=== PATIENT | male | born 1995 | race Caucasian/White ===

== ENCOUNTER 2020-11-16 08:41 | Outpatient (REF) | payer OTHER, SELFPAY | END 2020-11-16 08:42 | disposition home or self-care (01) | LOC: HO.LAB 08:41 | PROVIDERS: Visit Provider Internal Medicine | DX: Z20.822 Contact with and (suspected) exposure to COVID-19 (principal) | CPT/HCPCS: 36415; C9803; U0003; U0005 ==

== ENCOUNTER 2021-04-04 21:23 | Emergency (ER) | payer OTHER, SELFPAY ==
--- NOTE | ~2021-04-04 | XR_ITS ---
EXAMINATION: XR CHEST CLINICAL INFORMATION: Right rib pain COMPARISON: None TECHNIQUE: 2 views of the chest were obtained. FINDINGS: No significant abnormality is noted involving the heart, lungs, mediastinum, bony thorax or soft tissues. No rib abnormality seen. XR/XR chest 2V IMPRESSION: Unremarkable examination.
[2021-04-04 21:25] VITALS: BP 126/79; PULSE 75; RESP 16; TEMP 37.1; O2SAT 98; BMI 20.5
--- NOTE | 2021-04-04 23:29 | ED_ITS ---
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 noticed pain in the low right lower rib area also on the left side no increase in pain on deep inhalation no swelling or ecchymosis pain increases on palpation and arm movements Related Data Allergies Allergy/AdvReac Type Severity Reaction Status Date / Time No Known Allergies Allergy Unverified 04/04/21 21:30 Review of Systems Review of Systems: Yes all other systems are reviewed and are negative [facility] Past Medical History Medical History No known health problems Social History Social History Advance Directives: No Advance Directives Information Provided: No Physical Exam Vital Signs: Vital Signs: Last Vital Signs Temp 98.7 F 04/04/21 21:25 Pulse 75 04/04/21 21:25 Resp 16 04/04/21 21:25 BP 126/79 04/04/21 21:25 Pulse Ox 98 04/04/21 21:25 Body Mass Index 20.5 Const: General: healthy appearing, comfortable and no acute distress HENMT: Head: Yes normal to inspection Chest: Chest palpation & inspection: normal inspection of the chest Chest/axillae images: 1. Local tenderness right lower no deformity no crepitus 2. Mild local tenderness left lower rib no deformity or crepitus Resp: Effort & Inspection: normal respiratory effort Auscultation: clear to auscultation bilaterally Cardio: Rate: regular rate Rhythm: regular rhythm Heart sounds: S1 normal heart sound present and S2 normal heart sound present GI: Inspection: Yes normal to inspection Palpation (GI): Soft to palpation and nontender Auscultation: normal bowel sounds Extrem: General: Yes normal to inspection and Yes full ROM Medical Decision Making MDM Narrative Medical decision making narrative: Patient with local tenderness chest x-ray negative likely most skeletal pain discharge patient home on ibuprofen Discharge Plan Discharge Clinical Impression: Musculoskeletal chest pain Patient Disposition: Home, Self-Care Instructions: Musculoskeletal Pain (ED) Additional Instructions: Apply ice take ibuprofen 600 mg every 6 hours as needed for pain
== END 2021-04-05 01:21 | disposition home or self-care (01) ==
PROVIDERS: Emergency Provider Internal Medicine
DX: R07.89 Other chest pain (principal)
CPT/HCPCS: 71046; 99283

== ENCOUNTER 2021-10-26 15:14 | Emergency (ER) | payer SELFPAY ==
[2021-10-26 15:40] VITALS: BP 142/78; PULSE 106; RESP 18; TEMP 37.7; O2SAT 97; BMI 22.3
--- NOTE | 2021-10-26 16:09 | ED.GENADULT ---
HPI - General Adult General Chief complaint: Upper Respiratory Symptoms Stated complaint: Fever past three days, throat is sore- red spots Time Seen by Provider: 10/26/21 16:09 Source: patient Limitations: no limitations History of Present Illness HPI narrative: Patient presents to the ER complaining of sore throat for the past 3 days. Patient also noted to have a fever over the past 2-3 days. Patient states positive sick contacts. No known COVID-19 exposure. Patient is on vaccinated for COVID-19. Patient denies past medical history take any current prescribed medications. Patient does have a tobacco use history. Symptoms mild to moderate. Pain increases with swallowing. Patient denies nausea vomiting. Related Data Previous Rx's Medication Instructions Recorded benzonatate 100 mg capsule 100 mg PO TID PRN #14 cap 10/26/21 ibuprofen 600 mg tablet 600 mg PO TID PRN #30 tab 10/26/21 Allergies Allergy/AdvReac Type Severity Reaction Status Date / Time No Known Allergies Allergy Verified 10/26/21 15:40 Review of Systems Constitutional: Constitutional: Denies body ache(s), Denies chills, Reports fever(s) and Denies headache(s) ENT: Denies headache(s), Reports nasal congestion and Reports sore throat Cardiovascular: Cardiovascular: Denies chest pain and Denies dyspnea Respiratory: Respiratory: Denies cough and Denies dyspnea Gastrointestinal: Gastrointestinal: Denies nausea and Denies vomiting Musculoskeletal: Musculoskeletal: Denies back pain Neurologic: Denies headache(s) [facility] Past Medical History Attestation statement: The following information was validated with the patient. Medical History No known health problems Social History Social History Advance Directives: No Advance Directives Information Provided: No Physical Exam ED Vital Signs: Vital Signs - 24 hr 10/26/21 15:40 Temperature 99.9 F Pulse Rate 106 H Respiratory Rate 18 Blood Pressure 142/78 H Pulse Oximetry 97 BMI result Body Mass Index 22.3 vital signs have been reviewed as normal and appeared to be correct. Blood pressure normal. Heart rate normal. Respiration rate normal. Temperature normal. Oxygen saturation normal. Appearance: Alert. Oriented X3. No acute distress. Head: Normal external exam. Normocephalic. Atraumatic. Eyes: PERRLA. EOMI. Conjunctiva and sclera normal. Eyelids normal. ENT: Positive pharyngeal erythema no exudate no evidence of peritonsillar abscess uvula is midline Neck: Soft full range of motion CVS: Heart regular rate and rhythm no murmurs and rubs Respiratory: Breath sounds are clear to auscultation bilaterally. No accessory muscle use noted. Back: Full range of motion noted. Skin: Skin warm and dry. No rashes ecchymosis noted Extremities: Moving all extremities purposely patient is ambulatory Neuro: Oriented X 3. No motor deficit. No sensory deficit. Reflexes normal. Course Course Course Narrative: Acute pharyngitis Peritonsillar abscess COVID-19 Viral URI COVID-19 swab obtained rapid throat culture obtained results pending 16:40 patient's test for COVID is negative also for rapid strep Symptoms consistent with viral URI Medical Decision Making Lab Data Labs: Lab Results 10/26/21 10/26/21 Range/Units 15:46 15:46 COVID-19 (NAKITA) Negative (Negative) COVID-19 Clin Com See Note S. pyogenes GrpA JENNIFER Negative (Negative) Discharge Plan Discharge Clinical Impression: Upper respiratory infection Patient Disposition: Home, Self-Care Instructions: Upper Respiratory Infection (ED) Additional Instructions: COVID-19 test is negative. Rapid strep test is negative If culture becomes positive they will call you with results Increase fluids rest medications as directed Prescriptions: New benzonatate 100 mg capsule 100 mg PO TID PRN (Reason: cough) Qty: 14 0RF ibuprofen 600 mg tablet 600 mg PO TID PRN (Reason: fever) Qty: 30 0RF
[2021-10-26 16:29] LABS: Strep A Nucleic Acid Negative (Negative)
[2021-10-26 16:38] LABS: COVID-19 Test Negative (Negative); IDNOW Serial# 08D9AD1C
== END 2021-10-26 16:51 | disposition home or self-care (01) ==
PROVIDERS: Emergency Provider Emergency Medicine
DX: J06.9 Acute upper respiratory infection, unspecified (principal); Z20.822 Contact with and (suspected) exposure to COVID-19; R50.9 Fever, unspecified; J02.9 Acute pharyngitis, unspecified
CPT/HCPCS: 36415; 87635; 87651; 99282; 99283

== ENCOUNTER 2022-03-11 09:54 | Emergency (ER) | payer OTHER, SELFPAY ==
--- NOTE | ~2022-03-11 | XR_ITS ---
EXAMINATION: XR RIBS, LEFT CLINICAL INFORMATION: Rib pain COMPARISON: None TECHNIQUE: 4 views submitted FINDINGS: There is no evidence for pneumothorax or effusion. There is no fracture seen. XR/XR ribs LT min 3V w CXR1V IMPRESSION: No displaced fracture is seen. No pneumothorax or effusion
[2022-03-11 10:21] VITALS: BP 121/77; PULSE 63; RESP 18; TEMP 36.9; O2SAT 99; BMI 22.6
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
[2022-03-11] MEDS: Lidocaine 4 % Patch ADH..PATCH 1 PATCH TRANSDERMA (12:27)
[2022-03-11] MEDS: Ketorolac Tromethamine 30 MG/ML VIAL IM (12:28)
== END 2022-03-11 12:59 | disposition home or self-care (01) ==
PROVIDERS: Emergency Provider Emergency Medicine
DX: R07.81 Pleurodynia (principal); Z79.899 Other long term (current) drug therapy
CPT/HCPCS: 71101; 96372; 99283; 99284; J1885

== ENCOUNTER 2023-03-16 18:30 | Emergency (ER) | payer OTHER, SELFPAY ==
--- NOTE | ~2023-03-16 | XR_ITS ---
EXAMINATION: XR CHEST CLINICAL INFORMATION: Chest pain. COMPARISON: Chest radiograph 03/11/2022. TECHNIQUE: 2 views of the chest were obtained. FINDINGS: No significant abnormality is noted involving the heart, lungs, mediastinum, bony thorax or soft tissues. XR/XR chest 2V IMPRESSION: Unremarkable examination.
--- NOTE | 2023-03-16 18:32 | ECG_ITS ---
Test Reason : CHEST PAIN Blood Pressure : / mmHG Vent. Rate : 101 BPM Atrial Rate : 101 BPM P-R Int : 136 ms QRS Dur : 080 ms QT Int : 328 ms P-R-T Axes : 086 084 051 degrees QTc Int : 425 ms Sinus tachycardia Possible Left atrial enlargement Abnormal ECG When compared with ECG of 26-SEP-2010 22:03, No significant changes seen Referred By: Generic ED Physician Electronically Signed By:Douglas Strauss
--- NOTE | 2023-03-16 19:03 | ED.CHESTPAIN ---
HPI - Chest Pain General Chief Complaint: Chest Pain Stated Complaint: chest pain Time Seen by Provider: 03/16/23 19:48 Source: patient Mode of arrival: ambulatory Limitations: no limitations History of Present Illness HPI narrative: Patient comes to the emergency room complaining of chest pain for 4 days. Patient states that on the left side, lasting a few seconds, very sharp, self resolves. At this time, patient states that he is asymptomatic. Related Data Previous Rx's Medication Instructions Recorded benzonatate 100 mg capsule 100 mg PO TID PRN cough #14 caps 10/26/21 ibuprofen 600 mg tablet 600 mg PO TID PRN fever #30 tabs 10/26/21 acetaminophen 500 mg tablet 500 mg PO Q6H PRN fever or pain 03/11/22 (Tylenol Extra Strength) #14 tabs cyclobenzaprine 5 mg tablet 5 mg PO Q8H PRN pain (scale score 03/11/22 7-10) 5 days #14 tabs lidocaine 5 % topical patch 1 patch topical DAILY PRN pain #30 03/11/22 (Lidoderm) ea naproxen 500 mg tablet 500 mg PO BID PRN pain 10 days #20 03/11/22 tabs Allergies Allergy/AdvReac Type Severity Reaction Status Date / Time No Known Allergies Allergy Verified 10/26/21 15:40 Review of Systems Review of Systems: Constitutional : No Weight loss, No Fever, No Chills, No Night Sweats, No Fatigue, No Malaise ENT/Mouth : No Hearing loss, No Ear Pain, No Nasal Congestion, No Sinus Pain, No Hoarseness, No sore throat, No Rhinorrhea, No Swallowing Difficulty Eyes: No Eye Pain, No Swelling, No Redness, No Foreign Body, No Discharge, No Vision Changes Cardiovascular : Complaining of sharp intermittent Chest Pain, No SOB, No Dyspnea on Exertion, No Orthopnea, No Edema, No Palpitations Respiratory : No Cough, No Sputum, No Wheezing, No Smoke Exposure, No Dyspnea Gastrointestinal : No Nausea, No Vomiting, No Diarrhea, No Constipation, No abdominal Pain, No Hematochezia, No Melena Genitourinary : no irregular bleeding, No Dysuria, No Urinary Frequency, No Hematuria, No Urinary Incontinence, No Urgency, No Flank Pain, No Urinary Flow Changes, No Hesitancy Musculoskeletal : No joint pain, No Myalgias, No Joint Swelling Skin : No Skin Lesions, No rash Neuro : No Weakness, No Numbness, No Paresthesias, No Loss of Consciousness, No Dizziness, No Headache Psych : No Anxiety/Panic, No Depression, No SI/HI/AH/VH, No Social Issues, Heme/Lymph: No Bruising, No Bleeding,No Lymphadenopathy Endocrine : No Polyuria, No Polydipsia, No Temperature Intolerance PMF Past Medical History Medical History No known health problems Social History Social History Alcohol intake: current Alcohol intake frequency: a few times a week Alcohol type: beer Smoked in Last 30 Days: Yes Use of substances other than those prescribed or required for medical reasons: No Advance Directives: No Advance Directives Information Provided: No Physical Exam Vital Signs: Vital Signs: Last Vital Signs Temp 98.1 F 03/16/23 19:47 Pulse 72 03/16/23 19:47 Resp 13 03/16/23 19:47 BP 133/80 03/16/23 19:47 Pulse Ox 100 03/16/23 19:47 O2 Del Method Room Air 03/16/23 19:47 BMI result Body Mass Index 22.7 Const: Other: Appearance: Alert. Oriented X3. No acute distress. Eyes: Pupils equal, round and reactive to light. ENT: Pharynx normal. Neck: Normal inspection. Neck supple. No lymph nodes noted. No crepitus CVS: Normal heart rate and rhythm. Pulses normal. Normal S1 and S2, non reproducible chest pain on palpation Respiratory: No respiratory distress. Breath sounds normal. No Wheezing. No rales Abdomen: Soft and nontender. No rigidity. No distention. Skin: Skin warm and dry. Normal skin color. Normal skin turgor. Extremities: No lower extremity edema. No Lacerations. No Rash Neuro: Oriented X 3. No motor deficit. No sensory deficit. Moving all extremities. No slurred speech. CN 2 through 12 grossly intact Psych: calm, cooperative, normal affect Course Course Course Narrative: This is an RME: Additional HPI, ROS, PE not included below will be deferred to primary provider. Patient is a 27-year-old male presents emergency department for evaluation of left anterior chest pain onset 4 days ago without precipitating injury or upper respiratory symptoms. Pain is exacerbated with deep inspiration and movement. Does report a remote history of anxiety. Denies fevers, chills, shortness of breath, nausea, vomiting, lower extremity redness swelling, personal history DVT/PE Plan: Labs, EKG, CXR Medical Decision Making Medical Decision Making [facility] Narrative: -initially, patient came in complaining of chest pain for 3 days, admission was initially considered. -my interpretation EKG: Sinus tachycardia, heart rate 101, no ST segment depression or elevation, no T-wave inversion, QTC 425 -my interpretation of labs: Troponin is negative, D-dimer negative -wells criteria score for pulmonary embolism is 0 -patient's source of pain likely musculoskeletal, cardiac etiology is unlikely Differential Diagnosis Differential Diagnoses: The differential diagnosis associated with the presentation includes (ACS, PE, costochondritis, pleurisy) Admission/Observation Consideration of admission/observation: Escalation of care including admission/observation considered Lab Data [facility] Lab Attestation statement: I reviewed the patient's lab results. 03/16/23 19:57 03/16/23 19:58 Labs: Lab Results 03/16/23 03/16/23 03/16/23 Range/Units 19:57 19:58 19:58 WBC 9.4 (4.8-10.8) X10*3/uL RBC 5.68 (4.60-5.80) X10*6/uL Hgb 17.0 (14.0-18.0) g/dl Hct 48.7 (42.0-52.0) % MCV 85.7 (80.0-98.0) fL MCH 29.9 (27.0-33.0) pg MCHC 34.9 (31.0-36.0) g/dl RDW 11.9 (11.0-16.0) % Plt Count 204 (160-400) X10*3/uL MPV 9.6 (9.4-12.4) fL Immature Gran % (Auto) 0.2 (0.0-0.4) % Neut % (Auto) 73.2 H (45-73) % Lymph % (Auto) 18.7 L (20-40) % Atkinson % (Auto) 5.7 (2-11) % Eos % (Auto) 1.9 (0-4) % Baso % (Auto) 0.3 (0-2) % Lymph # (Auto) 1.8 (1.2-4.9) X10*3/uL Atkinson # (Auto) 0.5 (0.1-1.2) X10*3/uL Eos # (Auto) 0.2 (0.0-0.4) X10*3/uL Baso # (Auto) 0.0 (0.0-0.2) X10*3/uL Abs Immat Gran (auto) 0.02 (0.00-0.03) X10*3/uL Absolute Neuts (auto) 6.9 (2.0-8.3) x10*3/uL Absolute Nucleated RBC 0.000 (0.0-0.012) X10*3/uL Nucleated RBC % (auto) 0.0 (0.0-0.2) /100WBC D-Dimer High Sensitivty NG/ML Sodium 139 (135-145) mmol/L Potassium 3.8 (3.3-5.1) mmol/L Chloride 104 (96-108) mmol/L Carbon Dioxide 26 (22-29) mmol/L Anion Gap 13 (12-20) BUN 10 (9-16) mg/dL Creatinine 0.91 (0.5-1.4) mg/dL Estim Creat Clear Calc 116.7 Estimated GFR > 60 Random Glucose 95 (60-115) mg/dL Calcium 10.3 H (8.4-10.2) mg/dL Total Bilirubin 0.6 (0.0-1.0) mg/dL AST 15 (5-37) U/L ALT 14 (0-40) U/L Alkaline Phosphatase 91 (39-117) U/L Troponin I High Sens < 2.7 (<3.5-35.0) ng/L Total Protein 7.7 (6.5-8.0) g/dL Albumin 4.6 (3.5-5.0) g/dL 03/16/23 Range/Units 19:58 WBC (4.8-10.8) X10*3/uL RBC (4.60-5.80) X10*6/uL Hgb (14.0-18.0) g/dl Hct (42.0-52.0) % MCV (80.0-98.0) fL MCH (27.0-33.0) pg MCHC (31.0-36.0) g/dl RDW (11.0-16.0) % Plt Count (160-400) X10*3/uL MPV (9.4-12.4) fL Immature Gran % (Auto) (0.0-0.4) % Neut % (Auto) (45-73) % Lymph % (Auto) (20-40) % Atkinson % (Auto) (2-11) % Eos % (Auto) (0-4) % Baso % (Auto) (0-2) % Lymph # (Auto) (1.2-4.9) X10*3/uL Atkinson # (Auto) (0.1-1.2) X10*3/uL Eos # (Auto) (0.0-0.4) X10*3/uL Baso # (Auto) (0.0-0.2) X10*3/uL Abs Immat Gran (auto) (0.00-0.03) X10*3/uL Absolute Neuts (auto) (2.0-8.3) x10*3/uL Absolute Nucleated RBC (0.0-0.012) X10*3/uL Nucleated RBC % (auto) (0.0-0.2) /100WBC D-Dimer High Sensitivty < 150 NG/ML Sodium (135-145) mmol/L Potassium (3.3-5.1) mmol/L Chloride (96-108) mmol/L Carbon Dioxide (22-29) mmol/L Anion Gap (12-20) BUN (9-16) mg/dL Creatinine (0.5-1.4) mg/dL Estim Creat Clear Calc Estimated GFR Random Glucose (60-115) mg/dL Calcium (8.4-10.2) mg/dL Total Bilirubin (0.0-1.0) mg/dL AST (5-37) U/L ALT (0-40) U/L Alkaline Phosphatase (39-117) U/L Troponin I High Sens (<3.5-35.0) ng/L Total Protein (6.5-8.0) g/dL Albumin (3.5-5.0) g/dL Independent Interpretation I performed an independent interpretation of an: EKG Radiology Impression Discussion of test interpretation with radiology: I have reviewed the radiologist's reading. Radiologist Impression: FINDINGS: No significant abnormality is noted involving the heart, lungs, mediastinum, bony thorax or soft tissues. XR/XR chest 2V IMPRESSION: Unremarkable examination. Discharge Plan Discharge Clinical Impression: Atypical chest pain Patient Disposition: Home, Self-Care Instructions: Chest Pain (ED) Additional Instructions: Please follow-up with your primary care physician tomorrow. If you have any worsening or new symptoms, please return to the emergency room or call 911 Prescriptions: No Action acetaminophen [Tylenol Extra Strength] 500 mg tablet 500 mg PO Q6H PRN (Reason: fever or pain) Qty: 14 0RF lidocaine [Lidoderm] 5 % adhesive patch,medicated 1 patch topical DAILY MDD remove after 12 hours PRN (Reason: pain) Qty: 30 0RF Rx Instructions: leave on most painful area for up to 12 hrs naproxen 500 mg tablet 500 mg PO BID PRN (Reason: pain) 10 Days Qty: 20 0RF cyclobenzaprine 5 mg tablet 5 mg PO Q8H PRN (Reason: pain (scale score 7-10)) 5 Days Qty: 14 0RF benzonatate 100 mg capsule 100 mg PO TID PRN (Reason: cough) Qty: 14 0RF ibuprofen 600 mg tablet 600 mg PO TID PRN (Reason: fever) Qty: 30 0RF
[2023-03-16 19:06] VITALS: BP 139/85; PULSE 78; RESP 20; TEMP 37; O2SAT 100; BMI 22.7
[2023-03-16 19:47] VITALS: BP 133/80; PULSE 72; RESP 13; TEMP 36.7; O2SAT 100
--- NOTE | 2023-03-16 19:50 | PC.NURSE ---
Pt aox4 resting at the bedside. No apparent distress noted. Breaths are even regular and unlabored. NSR on monitor with HR 72. VSS Reports intermittent chest pain, 03/04, that [place]. Chest pain on the left side of the chest. No radiation. Pending lab results. MD at bedside.
[2023-03-16 20:01] LABS: MANUAL DIFF FLAG NO
[2023-03-16 20:02] LABS: Basophils Percent Auto 0.3 % (0-2); Eosinophils Absolute Auto 0.2 X10*3/uL (0.0-0.4); Eosinophils Percent Auto 1.9 % (0-4); Hematocrit 48.7 % (42.0-52.0); Imm Gran Abs Auto 0.02 X10*3/uL (0.00-0.03); Imm Gran Pct Auto 0.2 % (0.0-0.4); Lymphocytes Absolute Auto 1.8 X10*3/uL (1.2-4.9); Lymphocytes Percent Auto 18.7 % (20-40); Mean Corpuscular HGB Conc 34.9 g/dl (31.0-36.0); Mean Corpuscular Hemoglobin 29.9 pg (27.0-33.0); Mean Corpuscular Volume 85.7 fL (80.0-98.0); Mean Platelet Volume 9.6 fL (9.4-12.4); Monocytes Absolute Auto 0.5 X10*3/uL (0.1-1.2); Monocytes Percent Auto 5.7 % (2-11); Neutrophils Absolute Auto 6.9 x10*3/uL (2.0-8.3); Neutrophils Percent Auto 73.2 % (45-73); Platelet Count 204 X10*3/uL (160-400); Red Blood Count 5.68 X10*6/uL (4.60-5.80); Red Cell Distribution Width 11.9 % (11.0-16.0); White Blood Count 9.4 X10*3/uL (4.8-10.8)
[2023-03-16 20:17] LABS: D Dimer High Sensitivity < 150 NG/ML
[2023-03-16 20:26] LABS: Alanine Aminotransferase 14 U/L (0-40); Albumin Level 4.6 g/dL (3.5-5.0); Alkaline Phosphatase 91 U/L (39-117); Anion Gap 13 (12-20); Aspartate Amino Transferase 15 U/L (5-37); Bilirubin Total 0.6 mg/dL (0.0-1.0); Blood Urea Nitrogen 10 mg/dL (9-16); Calcium 10.3 mg/dL (8.4-10.2); Carbon Dioxide 26 mmol/L (22-29); Chloride 104 mmol/L (96-108); Creatinine Clr Calc Pharmacy 116.7; Estimated Glomerular Filt Rate > 60; Glucose Random 95 mg/dL (60-115); Potassium 3.8 mmol/L (3.3-5.1); Sodium 139 mmol/L (135-145); Total Protein 7.7 g/dL (6.5-8.0)
[2023-03-16 20:37] LABS: Troponin-I High Sensitivity < 2.7 ng/L (<3.5-35.0)
== END 2023-03-16 21:34 | disposition home or self-care (01) ==
PROVIDERS: Nurse Practitioner Family; Emergency Provider Emergency Medicine
DX: R07.89 Other chest pain (principal); R07.1 Chest pain on breathing
CPT/HCPCS: 36415; 71046; 80053; 84484; 85025; 85379; 93005; 99284; 99285

== ENCOUNTER → 2023-03-16 18:32 | Outpatient (BNV) | payer OTHER, SELFPAY | PROVIDERS: Emergency Provider Emergency Medicine; Visit Provider Internal Medicine Cardiovascular Disease | DX: R07.9 Chest pain, unspecified (principal) | CPT/HCPCS: 93010 ==

== ENCOUNTER 2023-05-21 14:07 | Emergency (ER) | payer OTHER, SELFPAY ==
[2023-05-21 14:14] VITALS: BP 152/77; PULSE 100; RESP 18; TEMP 36.7; O2SAT 98; BMI 22.8
--- NOTE | 2023-05-21 14:15 | ECG_ITS ---
Test Reason : CHEST PAIN Blood Pressure : / mmHG Vent. Rate : 070 BPM Atrial Rate : 070 BPM P-R Int : 144 ms QRS Dur : 080 ms QT Int : 360 ms P-R-T Axes : 082 081 072 degrees QTc Int : 388 ms Normal sinus rhythm Possible Left atrial enlargement Borderline ECG When compared with ECG of 16-MAR-2023 18:45, Heart rate has decreased Referred By: Robert Gilbert Electronically Signed By:GERALD MELO
--- NOTE | 2023-05-21 14:17 | ED.GENADULT ---
HPI - General Adult General Chief complaint: Abdominal Pain Stated complaint: Chest pain Time Seen by Provider: 05/21/23 18:23 Source: patient Mode of arrival: ambulatory Limitations: no limitations History of Present Illness HPI narrative: 27-year-old male came in for evaluation of epigastric/chest pain on and off for 2 months, patient was seen and evaluated in the emergency department for similar pain patient was instructed to follow up with GI and was given PPI therapy patient failed her with a PPI but now the pain is back pain is worse with food mostly burning sensation to the epigastric area with no radiation the pain is not associated with SOB or fever. Patient drinks alcohol occasionally, patient thought that the pain is worse with food in general. No nausea, no vomiting, no diarrhea, no blood in the vomitus or in the stool. Related Data Previous Rx's Medication Instructions Recorded benzonatate 100 mg capsule 100 mg PO TID PRN cough #14 caps 10/26/21 ibuprofen 600 mg tablet 600 mg PO TID PRN fever #30 tabs 10/26/21 acetaminophen 500 mg tablet 500 mg PO Q6H PRN fever or pain 03/11/22 (Tylenol Extra Strength) #14 tabs cyclobenzaprine 5 mg tablet 5 mg PO Q8H PRN pain (scale score 03/11/22 7-10) 5 days #14 tabs lidocaine 5 % topical patch 1 patch topical DAILY PRN pain #30 03/11/22 (Lidoderm) ea naproxen 500 mg tablet 500 mg PO BID PRN pain 10 days #20 03/11/22 tabs omeprazole 20 mg capsule,delayed 20 mg PO BID #30 caps 05/21/23 release Allergies Allergy/AdvReac Type Severity Reaction Status Date / Time No Known Allergies Allergy Verified 10/26/21 15:40 Review of Systems Review of Systems: All other systems are reviewed and are negative Constitutional: Reports as per HPI and Reports no additional constitutional complaints Eyes: Reports as per HPI and Reports no additional eye complaints Reports system reviewed and no additional complaints, except as documented Cardiovascular: Reports as per HPI and Reports no additional cardiovascular complaints Respiratory: Reports as per HPI and Reports no additional respiratory complaints Gastrointestinal: Reports as per HPI and Reports no additional gastrointestinal complaints Genitourinary: Reports no additional female genitourinary complaints Musculoskeletal: Reports no additional musculoskeletal complaints Skin/Breast: Reports system reviewed and no additional complaints, except as docu Psychiatric: Reports no additional psychiatric complaints Endocrine: Reports no additional endocrine complaints Hematologic/Lymphatic: Reports no additional hematologic/lymphatic complaints Allergic/Immunologic: Reports no additional allergic/immunologic complaints Reports system reviewed and no additional complaints, except as documented and Reports Abnormal speech present [facility] Past Medical History Medical History No known health problems Social History Social History Alcohol intake: current Alcohol intake frequency: a few times a week Alcohol type: beer Advance Directives: No Physical Exam ED Vital Signs: Vital Signs - 24 hr 05/21/23 14:14 Temperature 98.1 F Pulse Rate 100 Respiratory Rate 18 Blood Pressure 152/77 H Pulse Oximetry 98 Oxygen Delivery Method Room Air BMI result Body Mass Index 22.8 Vital signs have been reviewed and appear to be correct. Blood pressure elevated. Heart rate normal. Respiratory rate normal. Temperature normal. Oxygen saturation normal. Appearance: Alert. Oriented X3. No acute distress. Head: Normal external exam. Normocephalic. Atraumatic. No Grace signs noted. No raccoon eyes noted Eyes: PERRLA. EOMI. Conjunctiva and sclera normal. Eyelids normal. ENT: TM's Normal. Pharynx normal. Uvula midline. Moist mucous membranes. No trismus noted. No drooling noted. No muffled voice noted. Neck: Normal inspection. Neck supple. FROM. No adenopathy. Thyroid Normal. No meningeal signs. No neck mass noted. CVS: Normal heart rate and rhythm. Heart sound normal. No murmurs noted. Pulses normal throughout. Respiratory: No respiratory distress. Painless inspiration. Breath sounds normal. No wheezes/rales/rhonchi noted. Chest nontender. No accessory muscle usage noted or decreased air movement noted. Abdomen: Soft and nontender. Bowel sounds normal in all 4 quadrants. No distention noted. No organomegaly noted. No visible injury noted. Back: No CVA tenderness. Full range of motion noted. Skin: Skin warm and dry. Normal skin color. Normal skin turgor. No rashes/lesions/lacerations noted. Extremities: No lower extremity edema. Extremities exhibit normal range of motion. Extremities nontender. Neuro: Oriented X 3. Cranial nerve exam: II-XII are grossly intact No motor deficit. No sensory deficit. Reflexes normal. Course Course Course Narrative: This is an RME: Additional HPI, ROS, PE not included below will be deferred to primary provider. 27 y o male presenting for eval of CP and abdominal pain x1 month. Also endorsing exertional dyspnea, currently not sob. Denies N/V/D, dizziness, bowel changes. Plan -- labs, EKG Reevaluation(s) Reevaluation #1: Epigastric pain for 2 months likely gastritis will start the patient on Prilosec and follow-up with GI. Time: 18:43 Medical Decision Making Differential Diagnosis Differential Diagnoses: The differential diagnosis associated with the presentation includes (ACS, gastritis, duodenitis, severe electrolyte abnormality, severe anemia.) Admission/Observation Consideration of admission/observation: Escalation of care including admission/observation considered Lab Data MDM Lab Attestation statement: I reviewed the patient's lab results. 05/21/23 14:41 05/21/23 14:41 Labs: Lab Results 05/21/23 Range/Units 14:41 WBC 5.9 (4.8-10.8) X10*3/uL RBC 5.14 (4.60-5.80) X10*6/uL Hgb 15.4 (14.0-18.0) g/dl Hct 45.0 (42.0-52.0) % MCV 87.5 (80.0-98.0) fL MCH 30.0 (27.0-33.0) pg MCHC 34.2 (31.0-36.0) g/dl RDW 11.9 (11.0-16.0) % Plt Count 191 (160-400) X10*3/uL MPV 10.0 (9.4-12.4) fL Immature Gran % (Auto) 0.0 (0.0-0.4) % Neut % (Auto) 64.1 (45-73) % Lymph % (Auto) 24.0 (20-40) % [place] % (Auto) 7.3 (2-11) % Eos % (Auto) 4.3 H (0-4) % Baso % (Auto) 0.3 (0-2) % Lymph # (Auto) 1.4 (1.2-4.9) X10*3/uL [place] # (Auto) 0.4 (0.1-1.2) X10*3/uL Eos # (Auto) 0.3 (0.0-0.4) X10*3/uL Baso # (Auto) 0.0 (0.0-0.2) X10*3/uL Abs Immat Gran (auto) 0.00 (0.00-0.03) X10*3/uL Absolute Neuts (auto) 3.8 (2.0-8.3) x10*3/uL Absolute Nucleated RBC 0.000 (0.0-0.012) X10*3/uL Nucleated RBC % (auto) 0.0 (0.0-0.2) /100WBC Sodium 139 (135-145) mmol/L Potassium 3.7 (3.3-5.1) mmol/L Chloride 107 (96-108) mmol/L Carbon Dioxide 24 (22-29) mmol/L Anion Gap 12 (12-20) BUN 10 (9-16) mg/dL Creatinine 0.96 (0.5-1.4) mg/dL Estim Creat Clear Calc 111.2 Estimated GFR > 60 Random Glucose 89 (60-115) mg/dL Calcium 9.5 D (8.4-10.2) mg/dL Magnesium 2.0 (1.6-2.6) mg/dL Total Bilirubin 0.5 (0.0-1.0) mg/dL AST 17 (5-37) U/L ALT 17 (0-40) U/L Alkaline Phosphatase 80 (39-117) U/L Troponin I High Sens < 2.7 (<3.5-35.0) ng/L Total Protein 7.5 (6.5-8.0) g/dL Albumin 4.6 (3.5-5.0) g/dL Independent Interpretation I performed an independent interpretation of an: EKG (Prep normal sinus rhythm at 70 beats per minute, normal axis deviation, normal intervals, no ST-T changes) Discharge Plan Discharge Clinical Impression: Gastritis Patient Disposition: Home, Self-Care Instructions: Gastritis (ED) Prescriptions: New omeprazole 20 mg capsule,delayed release(DR/EC) 20 mg PO BID Qty: 30 0RF No Action acetaminophen [Tylenol Extra Strength] 500 mg tablet 500 mg PO Q6H PRN (Reason: fever or pain) Qty: 14 0RF lidocaine [Lidoderm] 5 % adhesive patch,medicated 1 patch topical DAILY MDD remove after 12 hours PRN (Reason: pain) Qty: 30 0RF Rx Instructions: leave on most painful area for up to 12 hrs naproxen 500 mg tablet 500 mg PO BID PRN (Reason: pain) 10 Days Qty: 20 0RF cyclobenzaprine 5 mg tablet 5 mg PO Q8H PRN (Reason: pain (scale score 7-10)) 5 Days Qty: 14 0RF benzonatate 100 mg capsule 100 mg PO TID PRN (Reason: cough) Qty: 14 0RF ibuprofen 600 mg tablet 600 mg PO TID PRN (Reason: fever) Qty: 30 0RF Referrals: Jennifer Montenegro MD [Physician] -
[2023-05-21 14:49] LABS: MANUAL DIFF FLAG NO
[2023-05-21 14:55] LABS: Basophils Percent Auto 0.3 % (0-2); Eosinophils Absolute Auto 0.3 X10*3/uL (0.0-0.4); Eosinophils Percent Auto 4.3 % (0-4); Hemoglobin 15.4 g/dl (14.0-18.0); Lymphocytes Absolute Auto 1.4 X10*3/uL (1.2-4.9); Mean Corpuscular HGB Conc 34.2 g/dl (31.0-36.0); Mean Corpuscular Volume 87.5 fL (80.0-98.0); Monocytes Absolute Auto 0.4 X10*3/uL (0.1-1.2); Monocytes Percent Auto 7.3 % (2-11); Neutrophils Absolute Auto 3.8 x10*3/uL (2.0-8.3); Neutrophils Percent Auto 64.1 % (45-73); Platelet Count 191 X10*3/uL (160-400); Red Blood Count 5.14 X10*6/uL (4.60-5.80); Red Cell Distribution Width 11.9 % (11.0-16.0); White Blood Count 5.9 X10*3/uL (4.8-10.8)
[2023-05-21 15:04] LABS: Alanine Aminotransferase 17 U/L (0-40); Albumin Level 4.6 g/dL (3.5-5.0); Alkaline Phosphatase 80 U/L (39-117); Anion Gap 12 (12-20); Aspartate Amino Transferase 17 U/L (5-37); Bilirubin Total 0.5 mg/dL (0.0-1.0); Blood Urea Nitrogen 10 mg/dL (9-16); Calcium 9.5 mg/dL (8.4-10.2); Carbon Dioxide 24 mmol/L (22-29); Chloride 107 mmol/L (96-108); Creatinine Clr Calc Pharmacy 111.2; Estimated Glomerular Filt Rate > 60; Glucose Random 89 mg/dL (60-115); Potassium 3.7 mmol/L (3.3-5.1); Sodium 139 mmol/L (135-145); Total Protein 7.5 g/dL (6.5-8.0)
[2023-05-21 15:23] LABS: Troponin-I High Sensitivity < 2.7 ng/L (<3.5-35.0)
[2023-05-21 19:01] VITALS: BP 120/74; PULSE 64; RESP 18; TEMP 36.9; O2SAT 98
== END 2023-05-21 19:06 | disposition home or self-care (01) ==
PROVIDERS: Physician Assistant; Emergency Provider Emergency Medicine
DX: K29.70 Gastritis, unspecified, without bleeding (principal); R07.89 Other chest pain; R10.2 Pelvic and perineal pain; R50.9 Fever, unspecified; Z79.899 Other long term (current) drug therapy
CPT/HCPCS: 36415; 80053; 83735; 84484; 85025; 93005; 99283; 99284

== ENCOUNTER 2023-06-07 14:49 | Outpatient (REF) | payer OTHER, SELFPAY ==
[2023-06-07 16:58] LABS: C Reactive Protein 0.95 mg/dL (< or = 0.50)
[2023-06-10 08:23] LABS: HBS Num1 1.98 mIU/mL (0-7.99); HBc Num1 0.11 S/CO (0.00-0.79); HBsAGNum1 0.35 S/CO (0.00-0.99); Hepatitis B Core Antibody Nonreactive (Nonreactive); Hepatitis B Surface Antigen Negative (Negative); ~HepC Num1 0.04 S/CO (0.00-0.79); ~Hepatitis B Surface Antibody NONREACTIVE (Nonreactive); ~Hepatitis C Antibody Nonreactive (Nonreactive)
[2023-06-10 15:08] LABS: Immunoglobulin A 162 mg/dL (47-310)
[2023-06-11 19:59] LABS: Transglutaminase IgA <1.0 U/mL
== END 2023-06-07 14:50 | disposition home or self-care (01) ==
LOC: HO.LAB 14:49
PROVIDERS: Visit Provider Internal Medicine
DX: R10.13 Epigastric pain (principal); K22.4 Dyskinesia of esophagus; Z11.59 Encounter for screening for other viral diseases; Z72.89 Other problems related to lifestyle
CPT/HCPCS: 36415; 82784; 86140; 86364; 86704; 86706; 86803; 87340; 99202

== ENCOUNTER 2023-06-07 14:49 | Outpatient (AMB) | payer OTHER, SELFPAY ==
--- NOTE | 2023-06-07 14:51 | A.OFFVIS_ITS ---
Intake Vital Signs 06/07/23 14:53 Height 5 ft 8 in Weight 147 lb 11.355 oz BMI 22.5 BP 132/77 Blood Pressure Location Lt brachial Position Sitting Pulse 66 Intake Visit Reasons: Gastritis, ER follow up Intake Note: José presents in the office as a gastritis ER follow up. CC: HE states that he has omeprazole but it does not work for him. He states that he has been like this for 3 months know. He states that he does not get constipation or diarrhea. He gets severe pains in his stomach - He gets epigastric pains that go to the LUQ. It is not a burning feeling - it feels like cramping feeling. He does not have any blood when he has a BM. Public Relations Account Supervisor Required: No Allergies No Known Allergies Allergy (Verified 06/07/23 14:55) HPI HPI Comments History of Present Illness Details 27y.o M who is here for epigastric pain ongoing x 1 months. Pt was seen in ER 2 weeks ago because his pain felt worse than usual and radiated to his upper chest as well so he was worried about a cardiac cause. However by the time he got to the ER it was only in the epigastrium which he decribes as waves of spasms/ squeezing and sharp which lasts for days. Triggered by food used to eat take out a lot yeimy burgers and pizza. Also associated with nausea and regurgitation. Sometimes has had night time sx too. No odynophagia, dysphagia or unintentional weight loss. Pt smokes 7-8cigs/day. Used to drink etOH on weekends but has discontinued that as it makes the pain worse. No NSAID use. [facility] Medical History No known health problems Social History (Updated 06/07/23 @ 14:55 by CORRINE Campoverde) Alcohol intake: current Alcohol intake frequency: a few times a week Alcohol type: beer Tobacco use type: Cigarette Cigarettes Per Day: 7 Review of Systems Const All systems reviewed & are unremarkable except as noted in HPI and below Physical Exam Vital Signs: Last Vital Signs Pulse 66 06/07/23 14:53 BP 132/77 06/07/23 14:53 BMI result Body Mass Index 22.5 Gen appear: NAD HEENT: nonicteric, no cervical lymphadenopathy Chest: CTA CVS: Regular S1/S2 Abd: soft, nontender, nondistended, bowel sounds + Ext: no peripheral edema Neuro: A/Ox3, noted to move all extremities spontaneously Psych: interacting appropriately Assessment & Plan Assessment & Plan (1) Epigastric pain: Code(s): R10.13 - Epigastric pain (2) Esophageal spasm: Code(s): K22.4 - Dyskinesia of esophagus Plan Ddx include esophagitis 2/2 GERD, PUD, EoE, esophageal dysmotility yeimy given spasm like sensation, atypical sx of celiac. Plan: - Labs as below - Barium swallow - EGD w/ bx to be booked - Start empiric trial of omeprazole 40mg PO daily - pt aware to HOLD this 2 weeks prior to EGD. Follow up after EGD Orders: Orders Immunoglobulin A 06/07/23 R10.13 - Epigastric pain C Reactive Protein 06/07/23 R10.13 - Epigastric pain Hepatitis B Core Antibody 06/07/23 R10.13 - Epigastric pain Hepatitis B Surface Antigen 06/07/23 R10.13 - Epigastric pain [place] barium swallow 06/07/23 K22.4 - Dyskinesia of esophagus US abdomen complete 06/07/23 R10.13 - Epigastric pain Transglutaminase IgA 06/07/23 R10.13 - Epigastric pain Hepatitis B Surface Antibody 06/07/23 R10.13 - Epigastric pain Hepatitis C Antibody 06/07/23 R10.13 - Epigastric pain Medications: New omeprazole 40 mg PO DAILY 90 caps 0RF 90 days Discontinued naproxen Discontinued Reason: Doctor's Order 500 mg PO BID 10 days PRN 20 tabs 0RF pain ibuprofen Discontinued Reason: Doctor's Order 600 mg PO TID PRN 30 tabs 0RF fever omeprazole Discontinued Reason: Doctor's Order 20 mg PO BID 30 caps 0RF Coding Level of Care Code New Pt Level 4 (15857) Diagnoses Epigastric pain R10.13 Esophageal spasm K22.4
[2023-06-07 14:53] VITALS: BP 132/77; PULSE 66; BMI 22.5
== END 2023-06-07 15:31 | disposition home or self-care (01) ==
PROVIDERS: Visit Provider Internal Medicine
DX: R10.13 Epigastric pain (principal); K22.4 Dyskinesia of esophagus
CPT/HCPCS: 99204

== ENCOUNTER 2023-08-22 15:00 | Emergency (ER) | payer OTHER, SELFPAY ==
--- NOTE | ~2023-08-22 | US_ITS ---
EXAMINATION: ULTRASOUND RIGHT LOWER QUADRANT CLINICAL INFORMATION: Right lower quadrant pain COMPARISON: None. TECHNIQUE: Grayscale ultrasound, color Doppler performed right lower quadrant. FINDINGS: Tubular structure measuring 0.6 cm right lower quadrant which appears to be a normal blind-ending appendix. No surrounding inflammation or fluid collection. No mass or lymphadenopathy. Fluid-filled bowel loops which do not have peristalsis during the imaging exam. US/US appendix IMPRESSION: 1. Normal appendix. 2. Fluid-filled bowel loops which do not have peristalsis during the imaging exam.
--- NOTE | ~2023-08-22 | XR_ITS ---
EXAMINATION: XR ABDOMEN COMPLETE CLINICAL INDICATION: Distended bowel loops on ultrasound. COMPARISON: None available. TECHNIQUE: 2 views of the abdomen. FINDINGS: There is scattered stool and gas seen in colon without distention. No organomegaly. No gross bony abnormality. XR/XR abdomen min 2V IMPRESSION: Mild constipation.
[2023-08-22 15:55] VITALS: BP 126/72; PULSE 88; RESP 20; TEMP 36.7; O2SAT 99; BMI 22.3
--- NOTE | 2023-08-22 15:56 | ED.GENADULT ---
HPI - General Adult General Chief complaint: Abdominal Pain Stated complaint: lower abd pain Time Seen by Provider: 08/22/23 21:19 Source: patient Mode of arrival: ambulatory Limitations: no limitations History of Present Illness HPI narrative: Patient comes to the emergency room complaining of right lower quadrant pain. Patient states it has been hurting for about 12 hours now. Patient denies nausea vomiting or diarrhea. Patient also complaining of suprapubic pain and dysuria intermittently. Denies flank pain, no chest pain. No fever or chills. Related Data Home Medications Medication Instructions Recorded Confirmed benzonatate 100 mg capsule 100 mg PO TID PRN cough 06/07/23 Previous Rx's Medication Instructions Recorded acetaminophen 500 mg tablet 500 mg PO Q6H PRN fever or pain 03/11/22 (Tylenol Extra Strength) #14 tabs cyclobenzaprine 5 mg tablet 5 mg PO Q8H PRN pain (scale score 03/11/22 7-10) 5 days #14 tabs lidocaine 5 % topical patch 1 patch topical DAILY PRN pain #30 03/11/22 (Lidoderm) ea omeprazole 40 mg capsule,delayed 40 mg PO DAILY 90 days #90 caps 06/07/23 release hyoscyamine sulfate 0.125 mg tablet 0.125 mg PO QID PRN dyspepsia #10 08/22/23 tabs Allergies Allergy/AdvReac Type Severity Reaction Status Date / Time No Known Allergies Allergy Verified 08/22/23 15:56 Review of Systems Review of Systems: Constitutional : No Weight loss, No Fever, No Chills, No Night Sweats, No Fatigue, No Malaise ENT/Mouth : No Hearing loss, No Ear Pain, No Nasal Congestion, No Sinus Pain, No Hoarseness, No sore throat, No Rhinorrhea, No Swallowing Difficulty Eyes: No Eye Pain, No Swelling, No Redness, No Foreign Body, No Discharge, No Vision Changes Cardiovascular : No Chest Pain, No SOB, No Dyspnea on Exertion, No Orthopnea, No Edema, No Palpitations Respiratory : No Cough, No Sputum, No Wheezing, No Smoke Exposure, No Dyspnea Gastrointestinal : No Nausea, No Vomiting, No Diarrhea, No Constipation, complaining of right lower quadrant pain, suprapubic pain and mild left lower quadrant pain Genitourinary : Complaining of mild intermittent Dysuria, No Urinary Frequency, No Hematuria, No Urinary Incontinence, No Urgency, No Flank Pain, No Urinary Flow Changes, No Hesitancy Musculoskeletal : No joint pain, No Myalgias, No Joint Swelling Skin : No Skin Lesions, No rash Neuro : No Weakness, No Numbness, No Paresthesias, No Loss of Consciousness, No Dizziness, No Headache Psych : No Anxiety/Panic, No Depression, No SI/HI/AH/VH, No Social Issues, Heme/Lymph: No Bruising, No Bleeding,No Lymphadenopathy Endocrine : No Polyuria, No Polydipsia, No Temperature Intolerance [facility] Past Medical History Medical History No known health problems Social History Social History (Updated 06/07/23 @ 14:55 by CORRINE Campoverde) Alcohol intake: current Alcohol intake frequency: a few times a week Alcohol type: beer Tobacco use type: Cigarette Cigarettes Per Day: 7 Smoked in Last 30 Days: Yes Use of substances other than those prescribed or required for medical reasons: No Advance Directives: No Advance Directives Information Provided: No Physical Exam ED Vital Signs: Vital Signs - 24 hr 08/22/23 15:55 08/22/23 21:26 Temperature 98.1 F 98.7 F Pulse Rate 88 73 Respiratory Rate 20 14 Blood Pressure 126/72 129/76 Pulse Oximetry 99 97 Oxygen Delivery Method Room Air Room Air BMI result Body Mass Index 22.3 Const Other: Appearance: Alert. Oriented X3. No acute distress. Eyes: Pupils equal, round and reactive to light. ENT: Pharynx normal. Neck: Normal inspection. Neck supple. No lymph nodes noted. No crepitus CVS: Normal heart rate and rhythm. Pulses normal. Normal S1 and S2 Respiratory: No respiratory distress. Breath sounds normal. No Wheezing. No rales Abdomen: Soft , discomfort to palpation in the bilateral lower quadrants and suprapubic area, no CVA tenderness. No rigidity. No distention. Skin: Skin warm and dry. Normal skin color. Normal skin turgor. Extremities: No lower extremity edema. No Lacerations. No Rash Neuro: Oriented X 3. No motor deficit. No sensory deficit. Moving all extremities. No slurred speech. CN 2 through 12 grossly intact Psych: calm, cooperative, normal affect Course Course Course Narrative: RME:?28 yo male here w/ LLQ pain beginning acutely this morning, radiating to groin, worsening. +nausea. no fever or vomiting. no anorexia. hasnt taken anything for the pain. plan for labs, scrotal US, +/- ct w/ con Full HPI, ROS and PE to be performed by the primary ED provider. Medical Decision Making Medical Decision Making [facility] Narrative: -my interpretation of labs: White blood cell count 14.4, chemistry unremarkable -appendix ultrasound: Normal appendix -my interpretation of KUB: Moderate amount of stool in the colon, no pattern of small bowel obstruction -urinalysis negative for UTI Differential Diagnosis Differential Diagnoses: The differential diagnosis associated with the presentation includes (Appendicitis, pyelonephritis, cystitis, UTI, viral syndrome) Admission/Observation Consideration of admission/observation: Escalation of care including admission/observation considered (Concerning patient's history labs and presentation arrival, admission was considered) Lab Data [facility] Lab Attestation statement: I reviewed the patient's lab results. 08/22/23 17:15 08/22/23 17:15 Labs: Lab Results 08/22/23 08/22/23 Range/Units 17:15 22:31 WBC 14.4 H (4.8-10.8) X10*3/uL RBC 5.28 (4.60-5.80) X10*6/uL Hgb 15.8 (14.0-18.0) g/dl Hct 45.3 (42.0-52.0) % MCV 85.8 (80.0-98.0) fL MCH 29.9 (27.0-33.0) pg MCHC 34.9 (31.0-36.0) g/dl RDW 12.1 (11.0-16.0) % Plt Count 200 (160-400) X10*3/uL MPV 9.9 (9.4-12.4) fL Immature Gran % (Auto) 0.4 (0.0-0.4) % Neut % (Auto) 88.2 H (45-73) % Lymph % (Auto) 6.4 L (20-40) % [place] % (Auto) 4.3 (2-11) % Eos % (Auto) 0.5 (0-4) % Baso % (Auto) 0.2 (0-2) % Lymph # (Auto) 0.9 L (1.2-4.9) X10*3/uL [place] # (Auto) 0.6 (0.1-1.2) X10*3/uL Eos # (Auto) 0.1 (0.0-0.4) X10*3/uL Baso # (Auto) 0.0 (0.0-0.2) X10*3/uL Abs Immat Gran (auto) 0.06 H (0.00-0.03) X10*3/uL Absolute Neuts (auto) 12.7 H (2.0-8.3) x10*3/uL Absolute Nucleated RBC 0.000 (0.0-0.012) X10*3/uL Nucleated RBC % (auto) 0.0 (0.0-0.2) /100WBC ESR 2 (0-15) MM/HR Sodium 138 (135-145) mmol/L Potassium 3.7 (3.3-5.1) mmol/L Chloride 104 (96-108) mmol/L Carbon Dioxide 23 (22-29) mmol/L Anion Gap 15 (12-20) BUN 12 (9-16) mg/dL Creatinine 0.85 (0.5-1.4) mg/dL Estim Creat Clear Calc 121.8 Estimated GFR > 60 Random Glucose 95 (60-115) mg/dL Calcium 10.0 (8.4-10.2) mg/dL Magnesium 2.1 (1.6-2.6) mg/dL Total Bilirubin 0.6 (0.0-1.0) mg/dL AST 17 (5-37) U/L ALT 18 (0-40) U/L Alkaline Phosphatase 93 (39-117) U/L C-Reactive Protein 0.47 (< or = 0.50) mg/dL Total Protein 8.0 (6.5-8.0) g/dL Albumin 4.9 (3.5-5.0) g/dL Lipase 19 (8-78) U/L Urine Color Yellow Urine Appearance Clear Urine pH 5.5 (5.0-9.0) Ur Specific [place] 1.025 (1.005-1.025) Urine Protein Negative (Neg-Trace) mg/dL Urine Glucose (UA) Negative (Negative) mg/dL Urine Ketones 40 (Negative) mg/dL Urine Blood Negative (Negative) Urine Nitrite Negative (Negative) Ur Leukocyte Esterase Negative (Negative) Independent Interpretation I performed an independent interpretation of an: Plain X-Ray Radiology Impression Discussion of test interpretation with radiology: I have reviewed the radiologist's reading. Radiologist Impression: FINDINGS: There is scattered stool and gas seen in colon without distention. No organomegaly. No gross bony abnormality. XR/XR abdomen min 2V IMPRESSION: Mild constipation. Critical Care Time Critical Care Time Critical Care Time: Yes Total Critical Care Time: 60 Attestation: I have personally provided critical care time. Time includes review of lab data, radiology results, discussion with consultants, and monitoring for potential decompensation. Intervention performed as documented. Discharge Plan Discharge Clinical Impression: Viral gastroenteritis Patient Disposition: Home, Self-Care Instructions: Gastroenteritis (ED) Additional Instructions: Please follow-up with your primary care physician tomorrow. If you have any worsening or new symptoms, please return to the emergency room or call 911 Prescriptions: New hyoscyamine sulfate 0.125 mg tablet 0.125 mg PO QID PRN (Reason: dyspepsia) Qty: 10 0RF No Action acetaminophen [Tylenol Extra Strength] 500 mg tablet 500 mg PO Q6H PRN (Reason: fever or pain) Qty: 14 0RF lidocaine [Lidoderm] 5 % adhesive patch,medicated 1 patch topical DAILY MDD remove after 12 hours PRN (Reason: pain) Qty: 30 0RF Rx Instructions: leave on most painful area for up to 12 hrs cyclobenzaprine 5 mg tablet 5 mg PO Q8H PRN (Reason: pain (scale score 7-10)) 5 Days Qty: 14 0RF benzonatate 100 mg capsule 100 mg PO TID PRN (Reason: cough) omeprazole 40 mg capsule,delayed release(DR/EC) 40 mg PO DAILY 90 Days Qty: 90 0RF
[2023-08-22 17:18] LABS: MANUAL DIFF FLAG NO
[2023-08-22 17:21] LABS: Basophils Percent Auto 0.2 % (0-2); Eosinophils Absolute Auto 0.1 X10*3/uL (0.0-0.4); Eosinophils Percent Auto 0.5 % (0-4); Hematocrit 45.3 % (42.0-52.0); Hemoglobin 15.8 g/dl (14.0-18.0); Imm Gran Abs Auto 0.06 X10*3/uL (0.00-0.03); Imm Gran Pct Auto 0.4 % (0.0-0.4); Lymphocytes Absolute Auto 0.9 X10*3/uL (1.2-4.9); Lymphocytes Percent Auto 6.4 % (20-40); Mean Corpuscular HGB Conc 34.9 g/dl (31.0-36.0); Mean Corpuscular Hemoglobin 29.9 pg (27.0-33.0); Mean Corpuscular Volume 85.8 fL (80.0-98.0); Mean Platelet Volume 9.9 fL (9.4-12.4); Monocytes Absolute Auto 0.6 X10*3/uL (0.1-1.2); Monocytes Percent Auto 4.3 % (2-11); Neutrophils Absolute Auto 12.7 x10*3/uL (2.0-8.3); Neutrophils Percent Auto 88.2 % (45-73); Platelet Count 200 X10*3/uL (160-400); Red Blood Count 5.28 X10*6/uL (4.60-5.80); Red Cell Distribution Width 12.1 % (11.0-16.0); White Blood Count 14.4 X10*3/uL (4.8-10.8)
[2023-08-22 17:38] LABS: Alanine Aminotransferase 18 U/L (0-40); Albumin Level 4.9 g/dL (3.5-5.0); Alkaline Phosphatase 93 U/L (39-117); Anion Gap 15 (12-20); Aspartate Amino Transferase 17 U/L (5-37); Bilirubin Total 0.6 mg/dL (0.0-1.0); Blood Urea Nitrogen 12 mg/dL (9-16); C Reactive Protein 0.47 mg/dL (< or = 0.50); Carbon Dioxide 23 mmol/L (22-29); Chloride 104 mmol/L (96-108); Creatinine Clr Calc Pharmacy 121.8; Estimated Glomerular Filt Rate > 60; Glucose Random 95 mg/dL (60-115); Lipase 19 U/L (8-78); Magnesium 2.1 mg/dL (1.6-2.6); Potassium 3.7 mmol/L (3.3-5.1); Sodium 138 mmol/L (135-145)
[2023-08-22 18:02] LABS: Erythrocyte Sedimentation Rate 2 MM/HR (0-15)
[2023-08-22 21:26] VITALS: BP 129/76; PULSE 73; RESP 14; TEMP 37.1; O2SAT 97
[2023-08-22 22:44] LABS: Appearance Urine Clear; Color Urine Yellow; Glucose Urine UA Negative (Negative); Leukocyte Esterase Urine Negative (Negative); Nitrite Urine Negative (Negative); PH 5.5 (5.0-9.0); Specific Gravity - Urine 1.025 (1.005-1.025); Urine Blood Negative (Negative); Urine Ketones 40 mg/dL (Negative); Urine Protein Negative (Neg-Trace)
[2023-08-23] MEDS: PHENobarb/Hyoscy/Atropine/Scop 10 ML ELIXIR 5 ML PO (00:12)
--- NOTE | 2023-08-23 00:20 | PC.NURSE ---
Took over care at 23:00 from KURT tinsley, reviewed discharge instructions with pt, pt verbalized understanding, no sign of distress. medicated per mar at discharge.
== END 2023-08-23 00:23 | disposition home or self-care (01) ==
PROVIDERS: Physician Assistant Medical; Emergency Provider Emergency Medicine
DX: A08.4 Viral intestinal infection, unspecified (principal); R10.31 Right lower quadrant pain; R30.0 Dysuria; R11.2 Nausea with vomiting, unspecified; Z79.899 Other long term (current) drug therapy
CPT/HCPCS: 36415; 74019; 76705; 80053; 81003; 83690; 83735; 85025; 85652; 86140; 99284

== ENCOUNTER 2023-08-28 08:33 | Outpatient (REF) | payer OTHER, SELFPAY | END 2023-08-28 08:34 | disposition home or self-care (01) | LOC: HO.XRAY 08:33 | PROVIDERS: Visit Provider Internal Medicine | DX: K22.4 Dyskinesia of esophagus (principal) | CPT/HCPCS: 74220 ==

== ENCOUNTER → 2023-08-28 08:34 | Outpatient (BNV) | payer OTHER, SELFPAY | PROVIDERS: Visit Provider Radiology Diagnostic Radiology | DX: R10.13 Epigastric pain (principal); K21.9 Gastro-esophageal reflux disease without esophagitis | CPT/HCPCS: 74221 ==

== ENCOUNTER 2023-12-17 11:05 | Day surgery (SDC) | payer OTHER, SELFPAY ==
[2023-12-13 14:10] VITALS: BMI 22.5
--- NOTE | 2023-12-16 09:49 | HO.ANESPROP2 ---
Documented by User: Nayeli Dominguez NP 12/16/23 09:50 HPI - Anesthesia Eval Consult details Narrative: 28yo M for Upper Endoscopy [facility] Active Problems Active Problems: All Active Problems Epigastric pain (Acute) Esophageal spasm (Acute) Past Medical History Medical History Esophageal spasm Surgical History Surgical History No pertinent past surgical history Social History Social History Alcohol intake: current Alcohol intake frequency: a few times a week Alcohol type: beer Patient Tobacco Use Status: Current everyday Tobacco user Tobacco use type: Cigarette Cigarettes Per Day: 7 Smoked in Last 30 Days: Yes Patient Interested in Nicotine Replacement: No Are you DNR?: No Advance Directives: No Advance Directives Information Provided: Yes Nutrition Risks: No Nutritional Risk Meds Allergies Allergy/AdvReac Type Severity Reaction Status Date / Time No Known Allergies Allergy Verified 12/17/23 11:41 Exam Height,Weight and Vital Signs: Height 5 ft 8 in Weight 67.132 kg Assessment and Plan Assessment Anesthesia Assessment: Chart Reviewed Documented by User: Zaria Esquivel MD 12/17/23 11:59 [facility] Past Medical History Medical History Esophageal spasm Family History Family history of problems with anesthesia: No Surgical History Surgical History No pertinent past surgical history History of Problems with Anesthesia: No (Not sure if GA for extraction of molar) Social History Social History Alcohol intake: current Alcohol intake frequency: a few times a week Alcohol type: beer Patient Tobacco Use Status: Current everyday Tobacco user Tobacco use type: Cigarette Cigarettes Per Day: 7 Smoked in Last 30 Days: Yes Patient Interested in Nicotine Replacement: No Are you DNR?: No Advance Directives: No Advance Directives Information Provided: Yes Nutrition Risks: No Nutritional Risk Meds Allergies Allergy/AdvReac Type Severity Reaction Status Date / Time No Known Allergies Allergy Verified 12/17/23 11:41 Exam Height,Weight and Vital Signs: Height 5 ft 8 in Weight 67.132 kg Vital Signs Temp Pulse Resp BP Pulse Ox O2 Del Method 12/17/23 11:53 98.1 F 75 18 135/74 99 Room Air Airway Mallampati Class: II TM Dist: >3cm Neck ROM: Full Loose/Missing/Broken Teeth: Yes (1 molar missing bottom left. Denies broken or loose teeth) Heart: RRR Lungs: CTAB Assessment and Plan Assessment Anesthesia Assessment: Anesthesia Plan Discussed and Chart Reviewed Final Anesthetic Review Family History of Problems with Anesthesia: No History of Problems with Anesthesia: No (Not sure if GA for extraction of molar) NPO: Yes ASA Class: II Final Preanesthetic Review: No Changes in Pt Med Stat, Meds/Allgs Chart Reviewed, Consent Obtained/Reviewed and Anes Risks/Benef Reviewed Patient Risk: Low Procedure Risk: Low Assessment/Block/Sedation in SS: Assess/Block/Sedation-SS Anesthetic Plan Anesthetic Plan: MAC: and TIVA Disposition: Standard PACU
[2023-12-17 11:39] VITALS: BMI 22.8
[2023-12-17] MEDS: Lactated Ringers 1,000 ML 100 ML IVCONT (11:51)
[2023-12-17 11:53] VITALS: BP 135/74; PULSE 75; RESP 18; TEMP 36.7; O2SAT 99
--- NOTE | 2023-12-17 12:15 | MHC.SHP ---
Pre-Procedural Eval Section A - 24 Hr Update-Section A only Date of Service: 12/17/23 Section B - Complete if H&P > 30 days Chief Complaint: Epigastric pain, gastritis Relevant Family History (Specify if Yes): No Present Medications: see Short Stay Collaborative assessment Medical History: No relevant PMH History of Previous Operations: No relevant previous surgery Allergies: Allergies Allergy/AdvReac Type Severity Reaction Status Date / Time No Known Allergies Allergy Verified 12/17/23 11:41 Review of Systems Review of Systems Comment: Ten point ROS negative Exam Exam Comment: Gen appear: No acute distress HEENT: no icterus Chest: No overt resp distress Abd: soft, nontender, nondistended Psych: Stable affect, answering questions appropriately Neuro: A/Ox3 noted to move all extremities spontaneously Ext: no peripheral edema Plan Diagnosis/Plan: Unchanged I have reviewed the history and physical and performed a pertinent physical examination on my patient. No changes have occurred unless specified. Time Spent With Patient Time: Total time managing care of this patient today ____ minutes.
--- NOTE | 2023-12-17 13:13 | P.OP_ITS ---
Operative Note Operative Note Date of Service: 12/17/23 Narrative: Procedure: Esophagogastroduodenoscopy Endoscopist: Anaid Barraza MD Indication: Epigastric pain, gastritis Anesthesia Provider: Jeanette Damon CRNA Anesthesia Type: MAC EGD Procedure:?? The procedure, indications, preparation and potential complications were reviewed with the patient, who indicated understanding and gave written informed consent to proceed. A physical exam was performed. The endoscope was introduced through the mouth, and advanced to the second part of duodenum. The mucosa was carefully examined on slow withdrawal of the endoscope. The patient tolerated the procedure well. There were no immediate complications.? ? EGD Findings:? * Esophagus:? Erythema and small erosions noted at the GE junction. The Z line was at 42 cm in irregular up to 41 cm. Cold forceps biopsies were taken to rule out Walton's esophagus. * Stomach:? Erythema, congestion and erosions were noted in the body of the stomach. Retroflexion was performed in the cardia that showed Hill grade II hiatal hernia. Random cold forceps gastric biopsies were taken to rule out H Pylori infection. * Duodenum:? Erythema and erosions in the duodenal bulb, the remaining mucosa was normal to the extent examined. Cold forceps biopsies were taken from duodenal bulb and second portion of the duodenum to rule out celiac sprue. ? EGD Impressions:? * Grade B esophagitis * Irregular squamocolumnar junction suspicious for Walton's esophagus (biopsy) * Gastritis (biopsy) * Bulbar duodenitis (biopsy) ?? Recommendations:?? * Follow biopsy results. Our office will call or send a letter with results within 7-10 days. * If Walton's confirmed, repeat EGD will depend on the presence and extent of dysplasia. May also need to be sent for tissue cypher. * Resume pantoprazole 40 mg twice a day. * If H pylori +, patient will be prescribed eradication therapy followed by test of cure. * Avoid NSAIDs and smoking Above has been reviewed with the patient.
[2023-12-17 13:19] VITALS: BP 142/88; PULSE 97; RESP 16; TEMP 36.6; O2SAT 98
[2023-12-17 13:34] VITALS: BP 127/73; PULSE 76; RESP 20; TEMP 36.9; O2SAT 97
[2023-12-17 13:48] VITALS: BP 121/69; PULSE 69; RESP 20; TEMP 36.9; O2SAT 98
== END 2023-12-17 14:30 | disposition home or self-care (01) ==
PROVIDERS: Visit Provider Internal Medicine
PROC: 0DJ08ZZ Inspection of Upper Intestinal Tract, Via Natural or Artificial Opening Endoscopic (ICD-10-PCS; CPT 43235; principal; 2023-12-17 12:30)
DX: K29.80 Duodenitis without bleeding (principal); K29.50 Unspecified chronic gastritis without bleeding; B96.81 Helicobacter pylori [H. pylori] as the cause of diseases classified elsewhere; K20.90 Esophagitis, unspecified without bleeding; K22.4 Dyskinesia of esophagus; K44.9 Diaphragmatic hernia without obstruction or gangrene; F17.210 Nicotine dependence, cigarettes, uncomplicated
CPT/HCPCS: 43239; 88305; 88313; 88342; J1596; J2704

== ENCOUNTER → 2023-12-17 11:05 | Outpatient (BNV) | payer OTHER, SELFPAY | PROVIDERS: Visit Provider Internal Medicine | DX: K29.70 Gastritis, unspecified, without bleeding (principal); K20.90 Esophagitis, unspecified without bleeding; K29.80 Duodenitis without bleeding | CPT/HCPCS: 43239 ==

== ENCOUNTER 2024-10-02 12:27 | Outpatient (AMB) | payer OTHER, SELFPAY ==
--- NOTE | 2024-10-02 12:29 | A.OFFVIS_ITS ---
Vital Signs 10/02/24 12:33 Height 5 ft 8 in Weight 147 lb BMI 22.3 BP 110/58 L Blood Pressure Location Lt brachial Position Sitting Pulse 74 Intake Visit Reasons: S/P EGD Intake Note: Patient follow up for EGD results. Patient cc: LIQ pain with bloating, acid reflex on and off, constipation and denies any other GI issues for today visit. Mixing Supervisor Required: No Accompanied by: Self / Same As Patient Allergies No Known Allergies Allergy (Verified 10/02/24 12:29) HPI Comments Details: 27y.o M who is here for epigastric pain ongoing x 1 months. Pt was seen in ER 2 weeks ago because his pain felt worse than usual and radiated to his upper chest as well so he was worried about a cardiac cause. However by the time he got to the ER it was only in the epigastrium which he decribes as waves of spasms/ squeezing and sharp which lasts for days. Triggered by food used to eat take out a lot yeimy burgers and pizza. Also associated with nausea and regurgitation. Sometimes has had night time sx too. No odynophagia, dysphagia or unintentional weight loss. Pt smokes 7-8cigs/day. Used to drink etOH on weekends but has discontinued that as it makes the pain worse. No NSAID use. 12/17/23: * Grade B esophagitis * Irregular squamocolumnar junction suspicious for Walton's esophagus (biopsy) * Gastritis (biopsy) * Bulbar duodenitis (biopsy) A. Duodenum, biopsy: Non-specific/peptic duodenitis. B. Stomach, random, biopsy: Chronic Helicobacter gastritis with mild activity; negative for intestinal metaplasia and dysplasia. C. Gastroesophageal junction, biopsy: Squamocolumnar mucosa with moderate chronic active inflammation and superficial bacteria consistent with H. pylori; negative for intestinal metaplasia and dysplasia. 10/02/24: Seen in follow up. Pt had missed post EGD follow up. H Pylori +. Reports no acute GI issues. Main complaint is intermittent LUQ pain. [facility] Medical History Esophageal spasm Surgical History No pertinent past surgical history Social History Alcohol intake: current Alcohol intake frequency: a few times a week Alcohol type: beer Patient Tobacco Use Status: Current everyday Tobacco user Tobacco use type: Cigarette Cigarettes Per Day: 7 Review of Systems Const All systems reviewed & are unremarkable except as noted in HPI and below Physical Exam Vital Signs: Last Vital Signs Pulse 74 10/02/24 12:33 BP 110/58 L 10/02/24 12:33 BMI result Body Mass Index 22.3 No apparent distress Nonicteric Abdomen soft, nondistended Alert and oriented x3, normal gait Assessment & Plan Assessment & Plan (1) Esophagitis determined by endoscopy: Code(s): K20.90 - Esophagitis, unspecified without bleeding Category: Medical (2) H. pylori infection: Code(s): A04.8 - Other specified bacterial intestinal infections Category: Medical (3) Epigastric pain: Code(s): R10.13 - Epigastric pain Category: Medical Plan Endoscopy findings reviewed with the patient. He is aware that he has known reflux with esophagitis. Will likely need moth exterminator PPI therapy. In addition, he also has H pylori gastritis. We will prescribe bismuth based quad therapy for eradication. Plan: -bismuth quad therapy prescribed as below -instructions reviewed with the patient -he is aware that once the therapies completed, he should continue to hold PPI to allow for test of cure 2-3 weeks after completion of therapy. Follow-up for breath test in 6 weeks Follow-up in office as needed depending on breath test results Medications: New omeprazole 20 mg PO BID 28 caps 0RF 14 days A04.8 - Other specified bacterial intestinal infections metronidazole 250 mg PO QID 56 tabs 0RF 14 days bismuth subsalicylate 2 tabs PO QID 112 tabs 0RF 14 days tetracycline 500 mg PO QID 56 caps 0RF 14 days Patient Instructions: 14 days of therapy (should not start any of these until has ALL 4 meds filled) : - Omeprazole 20mg 2 times a day - Tetracycline 500mg 4 times a day (avoid sunburn while taking) - Metronidazole 250mg 4 times a day (avoid all alcohol while taking, can take with food to avoid nausea) - Bismuth Subsalicylate 524mg 4 times a day (may turn stools black) A typical schedule can look like: 8 am: Omeprazole, Tetracycline, Metronidazole, Bismuth Subsalicylate Noon: Tetracycline, Metronidazole, Bismuth Subsalicylate 4 pm: Tetracycline, Metronidazole, Bismuth Subsalicylate 8 pm: Omeprazole, Tetracycline, Metronidazole, Bismuth Subsalicylate 2-3 weeks after completing the treatment, come to the office for H pylori breath test. Make sure to not take any omeprazole, pepcid etc before this test. Coding Level of Care Code Est Pt Level 4 (25801) Diagnoses Esophagitis determined by endoscopy K20.90 H. pylori infection A04.8 Epigastric pain R10.13
[2024-10-02 12:33] VITALS: BP 110/58; PULSE 74; BMI 22.3
--- OUTSIDE RECORDS SUMMARY | 2024-10-02 13:18 | XMS_ITS | Clinical Summary ---
Author Organization [employer] Address [address] [place] [address] Care Team Providers Care Agriculture Sales Account Manager Name Role Phone Unavailable Primary Care Provider Unavailabl e Social History Tobacco Use Types Packs/Day Years Used Date Smoking Tobacco: Never Assessed Sex and Gender Information Value Date Recorded Sex Assigned at Male 06/25/2022 10:21 AM EDT Legal Sex Male 10:21 AM EDT Gender Identity Not on file Sexual Orientation Not on file Plan of Treatment Health Maintenance Due Date Last Done Comments Depression Screening 1995 HIV Screening 1995 SDOH Screening 1995 Alcohol/Substance Use Screening 2007 Tobacco Screening 2007 Family Planning (PISQ) 2010 Hepatitis C Screening 2013 DTaP/Tdap/Td Vaccines (1 - Tdap) 2014 Hepatitis B Vaccines (1 of 3 - 19+ 3-dose series) 2014 COVID-19 Vaccine (1 - 2023-2 5 season) 2024 Influenza Vaccine (#1) 2024 Zoster Vaccines (1 of 2) 2045 RSV Patients and Pa tients Aged 60 years or older (1 - 1-dose 75+ series) 2070 HIB Vaccines Aged Out No longer eligi ble based on patient's age to complete this topic HPV Vaccines Aged Out No longer eligi ble based on patient's age to complete this topic Hepatitis A Vaccines Aged Out No long er eligible based on patient's age to complete this topic IPV Vaccines Aged Out No longer eligi ble based on patient's age to complete this topic Meningococcal Vaccine Aged Out No zhang carmen eligible based on patient's age to complete this topic Pneumococcal Vaccine: Pediat rics (0 to 5 Years) and At-Risk Patients (6 to 49) Years) Aged Out No longer eligible b ased on patient's age to complete this topic RSV under 20 months Aged Out No longe r eligible based on patient's age to complete this topic Rotavirus Vaccines Aged Out No longer eligible based on patient's age to complete this topic Insurance [facility] C3 [employer] [place] [id number] 1 [employer] [place] [id number] [employer] [place] [id number]
--- OUTSIDE RECORDS SUMMARY | 2024-10-02 13:18 | XMS_ITS | Encounter Summary ---
Author Organization [employer] Address [address] [facility] [address] [place] [address] Care Team Providers Care Firer Locomotive Crane Name Role Phone Unavailable Primary Care Provider Unavailabl e Reason for Visit * Reason Onset Date Comments new patient 06/26/2023 Encounter Details Date Type Department Care Team (Late st Contact Info) Description 06/26/2023 Telephone [facility] MEDICINE [address] [place], [place] [phone] Juan Carlos Zimmerman MD [address] [place], [place] [phone] new patient Social History Tobacco Use Types Packs/Day Years Used Date Smoking Tobacco: Never Assessed Sex and Gender Information Value Date Recorded Sex Assigned at Male 06/25/2022 10:21 AM EDT Legal Sex Male 10:21 AM EDT Gender Identity Not on file Sexual Orientation Not on file documented as of this encounter Miscellaneous Notes * Telephone Encounter - Robbie Lee - 06/26/2023 12:09 PM EDT Tc to pt, to start the process of becoming a patient with facility and also to informed that we do not take insurance to please switch to [employer], no answer/left Vm to call back at [phone]. documented in this encounter Plan of Treatment Not on file documented as of this encounter Visit Diagnoses Not on filedocumented in this encounter
--- OUTSIDE RECORDS SUMMARY | 2024-10-02 13:18 | XMS_ITS | Continuity of Care Document ---
Author Organization [facility] Address [address] [place] [address] Phone Care Team Providers Care Flight Data Technician Name Role Phone Sherri Paredes MD Unavailable Unavailable Advance Directives Directive Yes / No Effective Date File Name No Information Encounters Encounter Description Practice Location Reason(s) For Visit Diagnoses Date Provider [facility], [address] [place] [address], tel:[phone] [facility] No Information 2008 Lena Polanco. [address] [place] [address], [id number] [address] [place] [address], [facility], . tel:[phone] [facility], [address] [place] [address], tel:[phone] [facility] well visit (chief complaint) No Information 2006 Reinier Peterson. [address] [place] [address], [id number] [address] [place] [address], [id number], . tel:[phone] Family History Family Member Type Diagnosis Age At Onset No Information Payers Payer name Insurance type Covered libertarian ID Authoriza tion(s) No Information Social History Type Description Quantity Date Captured Comments Sex Male Smoking Status No Information Chief Complaint And Reason For Visit No Information History Of Present Illness Encounter Date Complaint History Of Prese nt Illness No Information Instructions Date Instruction Additional Infor mation No Information Assessments Type Assessment Date No Information
== END 2024-10-02 13:05 | disposition home or self-care (01) ==
PROVIDERS: Visit Provider Internal Medicine
DX: K20.90 Esophagitis, unspecified without bleeding (principal); A04.8 Other specified bacterial intestinal infections; R10.13 Epigastric pain
CPT/HCPCS: 99499

== ENCOUNTER → 2024-10-02 12:27 | Outpatient (BNVA) | payer OTHER, SELFPAY | PROVIDERS: Visit Provider Internal Medicine ==